=== PATIENT | male | born 1970 | race Caucasian/White ===

== ENCOUNTER 2023-02-05 15:13 | Inpatient (IN) | payer MEDICARE, OTHER ==
--- NOTE | 2023-02-05 15:20 | ED ---
General Adult HPI - General Stated complaint: petition Time Seen by Provider: 02/05/23 15:19 Source: RN notes reviewed - History of Present Illness Initial comments: 52-year-old male no significant past medical history presents the emergency department with chief complaint of suicidal ideation. Patient denies active plan at this time, however reports that he has had a plan in the past. He denies any homicidal ideation at this time. He denies any illicit drug alcohol use. He denies any visual, auditory hallucinations. - Related Data Home Medications Medication Instructions Recorded Confirmed Atorvastatin Calcium [Lipitor] 40 mg PO DAILY 02/05/23 02/05/23 Famotidine [Pepcid] 40 mg PO DAILY 02/05/23 02/05/23 Fenofibrate [Lofibra] 160 mg PO DAILY 02/05/23 02/05/23 Levothyroxine Sodium [Synthroid] 75 mcg PO DAILY 02/05/23 02/05/23 Rivaroxaban [Xarelto] 20 mg PO DAILY 02/05/23 02/05/23 Tamsulosin [Flomax] 0.8 mg PO DAILY 02/05/23 02/05/23 Venlafaxine HCl [Effexor] 75 mg PO BID 02/05/23 02/05/23 traZODone HCL [Desyrel] 200 mg PO HS 02/05/23 02/05/23 Allergies Allergy/AdvReac Type Severity Reaction Status Date / Time No Known Allergies Allergy Verified 02/05/23 16:58 Review of Systems ROS Statement: Those systems with pertinent positive or pertinent negative responses have been documented in the HPI. ROS Other: All systems not noted in ROS Statement are negative. General Exam - General Exam Comments Initial Comments: Visual Physical Exam Vital signs reviewed General: Well-appearing, nontoxic, no acute distress. Head: Normocephalic, atraumatic Eyes: PERRLA, EOMI ENT: Airway patent Chest: Nonlabored breathing Skin: No visual rash, normal skin tone Neuro: Alert and oriented 3 Musculoskeletal: No gross abnormalities General: Alert, in no acute distress, he appears unkept Head: atraumatic normocephalic. Eyes PERRL, EOMI intact, mucous membranes moist Respiratory: Lungs clear to auscultation bilaterally Cardiovascular: Rate regular rate and rhythm Abdominal: Soft without guarding or rebound Extremities: Normal inspection with full range of motion and normal capillary refill Neuroogic: alert and oriented 3, CN II-XII intact, able to ambulate with steady gait Skin: warm dry and intact with normal color Course Vital Signs 02/05/23 15:24 Temperature 98.3 F Pulse Rate 107 H Respiratory 18 Rate Blood Pressure 148/88 O2 Sat by Pulse 98 Oximetry - Reevaluation(s) Reevaluation #1: 02/05/23 19:31 Case discussed with nurse from EPS who believes the patient meets inpatient criteria Medical Decision Making - Medical Decision Making Was pt. sent in by a medical professional or institution (, ROBBY, SONG LYRICIST, urgent care, hospital, or prison...) When possible be specific @ -[No] Did you speak to anyone other than the patient for history (EMS, parent, family, police, friend...)? What history was obtained from this source @ -[No] Did you review nursing and triage notes (agree or disagree)? Why? @ -[I reviewed and agree with nursing and triage notes] Were old charts reviewed (outside hosp., previous admission, EMS record, old EKG, old radiological studies, urgent care reports/EKG's, prison records)? Report findings @ -[No old charts were reviewed] Differential Diagnosis (chest pain, altered mental status, abdominal pain women, abdominal pain men, vaginal bleeding, weakness, fever, dyspnea, syncope, headache, dizziness, GI bleed, back pain, seizure, CVA, palpatations, mental health, musculoskeletal)? @ -[not applicable] EKG interpreted by me (3pts min.). @ -[As above] X-rays interpreted by me (1pt min.). @ -[None done] CT interpreted by me (1pt min.). @ -[None done] U/S interpreted by me (1pt. min.). @ -[None done] What testing was considered but not performed or refused? (CT, X-rays, U/S, labs)? Why? @ -[None] What meds were considered but not given or refused? Why? @ -[None] Did you discuss the management of the patient with other professionals (professionals i.e. , ROBBY, SONG LYRICIST, lab, RT, psych nurse, social worker psychiatric, cmm inspector, teacher, strike operations officer, watch caser)? Give summary @ -[No] Was smoking cessation discussed for >3mins.? @ -[No] Was critical care preformed (if so, how long)? @ -[No] Were there social determinants of health that impacted care today? How? (Homelessness, low income, unemployed, alcoholism, drug addiction, transportation, low edu. Level, literacy, decrease access to med. care, senior living, rehab)? @ -[No] Was there de-escalation of care discussed even if they declined (Discuss DNR or withdrawal of care, Hospice)? DNR status @ -[No] What co-morbidities impacted this encounter? (DM, HTN, Smoking, COPD, CAD, Cancer, CVA, ARF, Chemo, Hep., AIDS, mental health diagnosis, sleep apnea, morbid obesity)? @ -[None] Was patient admitted / discharged? Hospital course, mention meds given and route, prescriptions, significant lab abnormalities, going to OR and other pertinent info. @ -Admission. This is a 52-year-old male presents to the emergency department with suicidal ideation. He had a thorough history and physical performed on the ED. Physical exam is unremarkable. Heart rate regular rate and rhythm lungs clear to auscultation bilaterally abdomen is soft and non- tender. Patient was evaluated by EPS nurse who believes the patient meets inpatient criteria. Case discussed with Dr. Escalante who agrees with plan of care Undiagnosed new problem with uncertain prognosis? @ -[No] Drug Therapy requiring intensive monitoring for toxicity (Heparin, Nitro, Insulin, Cardizem)? @ -[No] Were any procedures done? @ -[No] Diagnosis/symptom? @ -suicidal ideation Acute, or Chronic, or Acute on Chronic? @ Acute Uncomplicated (without systemic symptoms) or Complicated (systemic symptoms)? @ -complicated Side effects of treatment? @ -[No] Exacerbation, Progression, or Severe Exacerbation? @ -[No] Poses a threat to life or bodily function? How? (Chest pain, USA, OR, pneumonia, PE, COPD, DKA, ARF, appy, cholecystitis, CVA, Diverticulitis, Homicidal, Suicidal, threat to staff... and all critical care pts) @ -Likelihood as patient has suicidal Disposition Clinical Impression: Depression, Suicidal ideation Disposition: ADMITTED IP TO THIS HOSP Condition: Fair Referrals: Laura Whitehead MD [Primary Care Provider] - 1-2 days Time of Disposition: 19:35
[2023-02-05] MEDS ORDERED: LORazepam 2 MG/ML INJ IM PRN (21:01)
[2023-02-05] MEDS ORDERED: ACETAMINOPHEN TAB 325 MG TAB PO PRN (21:01)
[2023-02-05] MEDS ORDERED: HALOPERIDOL LACTATE 5 MG/ML 1 ML VIAL IM PRN (21:01)
[2023-02-05] MEDS ORDERED: MAGNESIUM HYDROXIDE 2,400 MG/10 ML CUP PO PRN (21:01)
[2023-02-05] MEDS ORDERED: MAG HYDROX/AL HYDROX/SIMETH 30 ML CUP PO PRN (21:01)
[2023-02-05] MEDS: traZODone HCL 100 MG TAB PO SCH (21:43)
[2023-02-05] MEDS: VENLAFAXINE HCL 75 MG TAB PO SCH (21:43)
[2023-02-05 22:29] LABS: Amphetamine Screen,Urine Not Detected (NotDetected); Barbiturate Screen,Urine Not Detected (NotDetected); Benzodiazepines Screen,Urine Not Detected (NotDetected); Cocaine Screen,Urine Not Detected (NotDetected); Methadone Screen, Urine Not Detected (NotDetected); Opiate Screen,Urine Not Detected (NotDetected); Oxycodone Screen, Urine Not Detected (NotDetected); Phencyclidine Screen,Urine Not Detected (NotDetected); Tricyclic Antidepressant,Urine Not Detected (NotDetected); Urn Cannabinoid Scrn Detected (NotDetected)
[2023-02-05] MEDS: FAMOTIDINE 20 MG TAB PO SCH (22:53)
[2023-02-05] MEDS: RIVAROXABAN 20 MG TAB PO SCH (23:00)
[2023-02-05] MEDS: LORazepam 1 MG TAB PO PRN (23:01)
[2023-02-06] MEDS: LEVOTHYROXINE 75 MCG TAB PO SCH (06:23)
[2023-02-06 08:50] LABS: Basophils # (A) 0.1 k/uL (0-0.2); Basophils % (A) 1 %; Eosinophils # (A) 0.3 k/uL (0-0.7); Eosinophils % (A) 5 %; HCT 52.6 % (39.0-53.0); Lymphocytes # (A) 1.5 k/uL (1.0-4.8); Lymphocytes % (A) 25 %; MCH 27.8 pg (25.0-35.0); MCHC 32.3 g/dL (31.0-37.0); MCV 86.2 fL (80.0-100.0); Mean Platelet Volume 7.6; Monocytes # (A) 0.5 k/uL (0-1.0); Monocytes % (A) 9 %; Neutrophils # (A) 3.4 k/uL (1.3-7.7); Neutrophils % (A) 58 %; Platelet Count 243 k/uL (150-450); RDW 14.3 % (11.5-15.5); WBC 5.9 k/uL (3.8-10.6)
[2023-02-06] MEDS ORDERED: FAMOTIDINE 20 MG TAB PO SCH (09:00)
[2023-02-06] MEDS ORDERED: NICOTINE 14MG/24HR PATCH TRANSDERM SCH (09:00)
[2023-02-06] MEDS ORDERED: RIVAROXABAN 20 MG TAB PO SCH (09:00)
[2023-02-06 09:04] LABS: Calcium 10.2 mg/dL (8.4-10.2); Potassium 4.3 mmol/L (3.5-5.1); Total Protein 8.3 g/dL (6.3-8.2)
[2023-02-06] MEDS: FENOFIBRATE 160 MG TAB PO SCH (09:18)
[2023-02-06] MEDS: ATORVASTATIN 40 MG TAB PO SCH (09:18)
[2023-02-06] MEDS: VENLAFAXINE HCL 75 MG TAB PO SCH (09:19)
[2023-02-06] MEDS: TAMSULOSIN 0.4 MG CAP.ER.24H PO SCH (09:19)
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
[2023-02-06] MEDS: LORazepam 1 MG TAB PO PRN (16:41)
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
[2023-02-06] MEDS: traZODone HCL 100 MG TAB PO SCH (21:06)
[2023-02-06] MEDS: RIVAROXABAN 20 MG TAB PO SCH (21:06)
[2023-02-06] MEDS: FAMOTIDINE 20 MG TAB PO SCH (21:07)
[2023-02-07] MEDS: LEVOTHYROXINE 75 MCG TAB PO SCH (06:47)
[2023-02-07] MEDS ORDERED: VENLAFAXINE HCL ER 75 MG CAP PO SCH (09:00)
[2023-02-07] MEDS: TAMSULOSIN 0.4 MG CAP.ER.24H PO SCH (09:25)
[2023-02-07] MEDS: ATORVASTATIN 40 MG TAB PO SCH (09:25)
[2023-02-07] MEDS: FENOFIBRATE 160 MG TAB PO SCH (09:25)
[2023-02-07] MEDS: LORazepam 1 MG TAB PO PRN ×2 (11:55→21:07)
--- NOTE | 2023-02-07 19:55 | P.PN ---
Progress Note - Text Progress Note Date: 02/07/23 Interval history: Patient was seen sitting in the hallway crying because another patient that reminds him of his daughter has been crying and he feels really bad and depressed. He was directable and agreeable to speak with senior mortgage underwriter. He reports depressed mood and suicidal ideation with plan to drink mixture of ammonia and bleach. He states "I wish I was ". He homicidal ideation, intent or plan. He denies auditory or visual hallucinations. Patient denies any side effects from the medications and has been compliant with meds. He reports poor appetite and claims to not have eaten since Thursday dinner, but he has been drinking water. Mental status exam: General Appearance: Patient appears to be stated age, disheveled, unkept plata. Behavior: No agitated behavior. Patient is tearful, found in the hallway, sitting in the corner sobbing. Speech: Patient's speech is fluent and non-pressured. Mood/Affect: Mood is depressed, affect is congruent and constricted and sobbing. Suicidality/Homicidality: He reports suicidal ideation with plan to drink mixture of ammonia and bleach. He denies homicidal ideation, intent or plan. Perceptions: Patient denies any auditory or visual hallucinations. Though content/process: There is no evidence of any delusional thought content and thought process is ruminative. Memory and concentration: AOX3, grossly intact for the purposes of this session Judgment and insight: poor Assessment/Plan: Continue with current diagnosis. Patient continues to meet criteria for inpatient psychiatric admission for symptom stabilization and safety. Increase Effexor XR to 112.5 mg daily in the AM starting tomorrow morning. Start Remeron 15 mg QHS for depression/sleep/appetite. Decrease Trazodone from 200 mg QHS to 150 mg QHS for sleep, with plan to continue taper down if tolerated. Monitor for medication compliance and for any psychotropic medication side effects. Will continue to monitor ongoing response to treatment. Encouraged participation in milieu.
[2023-02-07] MEDS: FAMOTIDINE 20 MG TAB PO SCH (20:50)
[2023-02-07] MEDS: RIVAROXABAN 20 MG TAB PO SCH (20:51)
[2023-02-07] MEDS: MIRTAZAPINE 15 MG TAB PO SCH (20:52)
[2023-02-07] MEDS ORDERED: traZODone HCL 50 MG TAB PO SCH (21:00)
[2023-02-08] MEDS: LEVOTHYROXINE 75 MCG TAB PO SCH (07:00)
[2023-02-08] MEDS ORDERED: VENLAFAXINE HCL ER 37.5 MG CAP PO SCH (09:00)
[2023-02-08] MEDS: TAMSULOSIN 0.4 MG CAP.ER.24H PO SCH (09:17)
[2023-02-08] MEDS: ATORVASTATIN 40 MG TAB PO SCH (09:17)
[2023-02-08] MEDS: FENOFIBRATE 160 MG TAB PO SCH (09:18)
--- NOTE | 2023-02-08 19:49 | P.PN ---
Progress Note - Text Progress Note Date: 02/08/23 Interval history: Patient was seen walking in the hallway and appears to be better today, but states he feels the same as yesterday. He reports his mood is "pathetic", and reports he is missing family dinner today with his daughter. He continues to endorse suicidal ideation and states "I wish I was ". He homicidal ideation, intent or plan. He denies auditory or visual hallucinations. Patient has been compliant with meds and reports he slept in until 2pm. He reports poor appetite but did eat some broth today. Mental status exam: General Appearance: Patient appears to be stated age, disheveled, unkept plata. Behavior: No agitated behavior. Speech: Patient's speech is fluent and non-pressured. Mood/Affect: Mood is depressed, affect is congruent and constricted. Suicidality/Homicidality: He reports suicidal ideation. He denies homicidal ideation, intent or plan. Perceptions: Patient denies any auditory or visual hallucinations. Though content/process: There is no evidence of any delusional thought content and thought process is ruminative. Memory and concentration: AOX3, grossly intact for the purposes of this session Judgment and insight: poor Assessment/Plan: Continue with current diagnosis. Patient continues to meet criteria for inpatient psychiatric admission for symptom stabilization and safety. Increase Effexor XR to 150 mg daily in the AM starting tomorrow morning for anxiety/depression. Continue Remeron 15 mg QHS for depression/sleep/appetite. Decrease Trazodone from 150 mg QHS to 100 mg QHS for sleep, with plan to continue taper down if tolerated. Monitor for medication compliance and for any psychotropic medication side e ffects. Will continue to monitor ongoing response to treatment. Encouraged participation in milieu.
[2023-02-08] MEDS: FAMOTIDINE 20 MG TAB PO SCH (21:12)
[2023-02-08] MEDS: RIVAROXABAN 20 MG TAB PO SCH (21:12)
[2023-02-08] MEDS: traZODone HCL 100 MG TAB PO SCH (21:12)
[2023-02-08] MEDS: MIRTAZAPINE 15 MG TAB PO SCH (21:12)
[2023-02-09] MEDS: LEVOTHYROXINE 75 MCG TAB PO SCH (06:55)
[2023-02-09] MEDS: TAMSULOSIN 0.4 MG CAP.ER.24H PO SCH (08:54)
[2023-02-09] MEDS: ATORVASTATIN 40 MG TAB PO SCH (08:54)
[2023-02-09] MEDS: FENOFIBRATE 160 MG TAB PO SCH (08:54)
[2023-02-09] MEDS: VENLAFAXINE HCL ER 150 MG CAP PO SCH (08:55)
--- NOTE | 2023-02-09 12:52 | P.PN ---
Subjective Progress Note Date: 02/09/23 Principal diagnosis: Progress note Diagnosis: Major Depressive Disorder and dysthymic disorder. His mood symptoms have not improved : he commented he was still " suicidal" and do not want to continue. He was precccupied with his deflated self-image and had difficulty in release from longterm and to resume Normal life. He was compliant with his Rx: and was continued o Effexor trazoeone. He may benefit from ABilify as augmentation strategy if he fails to respond by Thursday. MSE: he was superficially pleasant, with downcast eye speaking in a low tone of voice. speech coherent ; blunted affect congruuent with his thought content. No overt Psychotic aymptoms of hallucinations. or delusons. His preoccupation with suicidal ideation and his inflated worthlessness reached a obsession magnitude. He vieweD his future as bleak with suicidal ideation , no suicidal plan. he felt safe on the unit. Cog; he was oriented with marginal or absent insight judgment . Plan He coontineud to require inpatient stay to stablize his mental stATUS CONSULT WITH SOCIAL WORK FOR alternative home milieu to defuse family conflicts. Engage him to unit groups Objective - Vital Signs Vital signs: Vital Signs Temp 97.7 F 02/09/23 06:32 Pulse 81 02/09/23 06:32 Resp 16 02/09/23 06:32 BP 127/71 02/09/23 06:32 Pulse Ox 98 02/09/23 06:32 FiO2 Intake & Output 02/08/23 02/09/23 02/09/23 18:59 06:59 18:59 Weight 88.5 kg - Labs CBC & Chem 7: 02/06/23 08:29 02/06/23 08:29
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
[2023-02-09] MEDS: traZODone HCL 100 MG TAB PO SCH (21:11)
[2023-02-09] MEDS: FAMOTIDINE 20 MG TAB PO SCH (21:11)
[2023-02-09] MEDS: RIVAROXABAN 20 MG TAB PO SCH (21:11)
[2023-02-09] MEDS: MIRTAZAPINE 15 MG TAB PO SCH (21:11)
[2023-02-10] MEDS: LEVOTHYROXINE 75 MCG TAB PO SCH (06:24)
[2023-02-10] MEDS: ATORVASTATIN 40 MG TAB PO SCH (09:05)
[2023-02-10] MEDS: TAMSULOSIN 0.4 MG CAP.ER.24H PO SCH (09:05)
[2023-02-10] MEDS: VENLAFAXINE HCL ER 150 MG CAP PO SCH (09:06)
[2023-02-10] MEDS: FENOFIBRATE 160 MG TAB PO SCH (09:06)
[2023-02-10] MEDS: haloperidoL 5 MG TAB PO PRN (15:17)
[2023-02-10] MEDS: LORazepam 1 MG TAB PO PRN (15:17)
--- NOTE | 2023-02-10 17:37 | P.PN ---
Subjective Progress Note Date: 02/10/23 Principal diagnosis: Progress note I attempted to engage him to alternative plab bu failed he was unwilling to consider yet another Rx trial to cope better with his negaitve ideations regarding his self iamge. He was discussed at the team meeting. MSE : still blunted dishrevelled in appearance , he remained seclusive and did not want to communicate or attend in person. Highly flat affect. Congruent with his thought content. He deneid any halluciantons . Nihilistic delusion ; nothing works may have consumed his cognitive set. No Suicidla or homicidal ideation. Cog; He was oriended with absent insight judgement into his conditon Diagnosis : MDD severe, peronality disorder has to be considered. treatment resistant depression would be likely management he may benefit form Augmentation with Brexulti or ability in addition to SSRI or SNRI discharge planning to be further discussed. Objective - Vital Signs Vital signs: Vital Signs Temp 98.3 F 02/10/23 06:00 Pulse 85 02/10/23 06:00 Resp 17 02/10/23 06:00 BP 98/60 02/10/23 06:00 Pulse Ox 93 L 02/10/23 06:00 FiO2 Intake & Output 02/09/23 02/10/23 02/10/23 18:59 06:59 18:59 Weight 88.5 kg - Labs CBC & Chem 7: 02/06/23 08:29 02/06/23 08:29
[2023-02-10] MEDS: MIRTAZAPINE 15 MG TAB PO SCH (20:46)
[2023-02-10] MEDS: traZODone HCL 100 MG TAB PO SCH (20:46)
[2023-02-10] MEDS: RIVAROXABAN 20 MG TAB PO SCH (20:46)
[2023-02-10] MEDS: FAMOTIDINE 20 MG TAB PO SCH (20:46)
[2023-02-11] MEDS: LEVOTHYROXINE 75 MCG TAB PO SCH (06:57)
[2023-02-11] MEDS ORDERED: VENLAFAXINE HCL ER 75 MG CAP PO STA (09:49)
--- NOTE | 2023-02-11 09:57 | P.PN ---
Progress Note - Text Progress Note Date: 02/11/23 Interval history: Patient was seen today sleeping in bed. he was agreeable to be seen today by jose g carpio in the office. he continues to have a discheveled appearance. he states that he is still isolating and still feeling depressed. he was less tearful today. he claims that he is still having amotivation, feelings of helplessness and hoplessness. he states that he is not interested in going to many groups. He claims that his appetite is still poor. States that he is sleeping for long periods of time and wants to sleep during the day. He claims that he still having suicidal thoughts however no intent or plan. Denies any homicidal ideations. Denies any auditory or visual hallucinations. He has been taking the medications not reporting any side effects. General Appearance: Patient appears to be disheveled in appearance, longer hair, wearing glasses, stated age is alert, directable, and attempts to cooperate. Patient appears to have poor hygiene and grooming. Poor eye contact. Behavior: Patient is seated without any agitated behavior. Constricted. Speech: Patient's speech is fluent and nonpressured. Monotone and soft tone Mood/Affect: Patient reports their mood is depressed and anxious, affect is congruent and constricted. Suicidality/Homicidality: Patient denies having any homicidal ideation intent or plan. Admits to suicidal thoughts, no intent or plan. Perceptions: Patient denies any visual hallucinations and denies any auditory hallucinations Though content/process: There is no evidence of any delusional thought content and thought process is linear and goal-directed. [place]. Memory and concentration: AOX3, grossly intact for the purposes of this session Judgment and insight: poor IMPRESSIONS: Major depressive disorder, recurrent, severe without psychotic features Social anxiety disorder Cannabis use disorder legal problems PLAN: -Patient is admitted under voluntary status to [facility] for stabilization of psychiatric symptoms and safety. Patient has signed adult voluntary form and medication consent and is placed in patient's chart. -Medications : increase effexor xr 225 mg daily for mood/anxiety. decrease trazodone to 50 mg qhs for sleep/mood. continuie with remeron 15 mg qhs for sleep/appetite. -Ativan and Haldol PRN for agitation/aggression -NRT - not needed as patient does not smoke -SW on board for discharge planning. Encourage patient to participate in groups to work on coping skills. patients has a PPO against him and he is not allowed to contact him. patient is not allowed to go back home and currently looking into alternative dispo plans.
[2023-02-11] MEDS: TAMSULOSIN 0.4 MG CAP.ER.24H PO SCH (10:28)
[2023-02-11] MEDS: ATORVASTATIN 40 MG TAB PO SCH (10:28)
[2023-02-11] MEDS: FENOFIBRATE 160 MG TAB PO SCH (10:28)
[2023-02-11] MEDS: VENLAFAXINE HCL ER 75 MG CAP PO SCH (10:37)
[2023-02-11] MEDS: VENLAFAXINE HCL ER 150 MG CAP PO SCH (10:44)
[2023-02-11] MEDS: MIRTAZAPINE 15 MG TAB PO SCH (20:54)
[2023-02-11] MEDS: FAMOTIDINE 20 MG TAB PO SCH (20:54)
[2023-02-11] MEDS ORDERED: traZODone HCL 50 MG TAB PO SCH (21:00)
[2023-02-11] MEDS: RIVAROXABAN 20 MG TAB PO SCH (21:10)
[2023-02-12] MEDS: haloperidoL 5 MG TAB PO PRN (00:10)
[2023-02-12] MEDS: LORazepam 1 MG TAB PO PRN (00:10)
[2023-02-12] MEDS: LEVOTHYROXINE 75 MCG TAB PO SCH (08:56)
[2023-02-12] MEDS: VENLAFAXINE HCL ER 75 MG CAP PO SCH (08:56)
[2023-02-12] MEDS: TAMSULOSIN 0.4 MG CAP.ER.24H PO SCH (08:57)
[2023-02-12] MEDS: ATORVASTATIN 40 MG TAB PO SCH (08:57)
[2023-02-12] MEDS: FENOFIBRATE 160 MG TAB PO SCH (08:57)
--- NOTE | 2023-02-12 11:21 | P.PN ---
Progress Note - Text Progress Note Date: 02/12/23 Interval history: Patient was seen today sleeping in bed and was agreeable to be seen today by jose g carpio in the office. he continues to have a discheveled appearance and continues to have poor eye contact. He continues to state that he feels "still depressed" and continues to focus on having a motivation, feelings of hopelessness. He states that he is still having thoughts of "not wanting to live anymore". He claims that he is having a lot of racing thoughts last night and thought that he hurt his talking to him and needed Ativan and Haldol. he states that he is not interested in going to many groups however will try to go to some today. He claims that his appetite is still poor and has not been consuming much. He claims that he still having suicidal thoughts however no intent or plan. Denies any homicidal ideations. Denies any auditory or visual hallucinations. He has been taking the medications not reporting any side effects. Mental status exam: General Appearance: Patient appears to be disheveled in appearance, longer hair, wearing glasses, stated age is alert, directable, and attempts to cooperate. Patient appears to have poor hygiene and grooming. Poor eye contact. Behavior: Patient is seated without any agitated behavior. Constricted. Speech: Patient's speech is fluent and nonpressured. Monotone and soft tone Mood/Affect: Patient reports their mood is depressed, affect is congruent and constricted. Suicidality/Homicidality: Patient denies having any homicidal ideation intent or plan. Admits to suicidal thoughts, no intent or plan. Perceptions: Patient denies any visual hallucinations and denies any auditory hallucinations Though content/process: There is no evidence of any delusional thought content and thought process is linear and goal-directed. [place]. Memory and concentration: AOX3, grossly intact for the purposes of this session Judgment and insight: poor, improving mildly IMPRESSIONS: Major depressive disorder, recurrent, severe without psychotic features Social anxiety disorder Cannabis use disorder legal problems PLAN: -Patient is admitted under voluntary status to [facility] for stabilization of psychiatric symptoms and safety. Patient has signed adult voluntary form and medication consent and is placed in patient's chart. -Medications : Continue with Effexor xr 225 mg daily for mood/anxiety. d/c trazodone and remeron and replaced with seroquel 100 mg qhs for insomnia/mood stabilization -Ativan and Haldol PRN for agitation/aggression -NRT - not needed as patient does not smoke -SW on board for discharge planning. Encourage patient to participate in groups to work on coping skills. patients has a PPO against him and he is not allowed to contact him. patient is not allowed to go back home and currently looking into alternative dispo plans. may likely need to be referred to half-way.
[2023-02-12] MEDS: FAMOTIDINE 20 MG TAB PO SCH (20:46)
[2023-02-12] MEDS: QUEtiapine 100 MG TAB PO SCH (20:46)
[2023-02-12] MEDS: RIVAROXABAN 20 MG TAB PO SCH (20:46)
[2023-02-13] MEDS: haloperidoL 5 MG TAB PO PRN (00:12)
[2023-02-13] MEDS: LORazepam 1 MG TAB PO PRN (00:12)
[2023-02-13] MEDS: LEVOTHYROXINE 75 MCG TAB PO SCH (06:31)
[2023-02-13] MEDS: ATORVASTATIN 40 MG TAB PO SCH (09:46)
[2023-02-13] MEDS: FENOFIBRATE 160 MG TAB PO SCH (09:46)
[2023-02-13] MEDS: VENLAFAXINE HCL ER 75 MG CAP PO SCH (09:46)
[2023-02-13] MEDS: TAMSULOSIN 0.4 MG CAP.ER.24H PO SCH (09:46)
--- NOTE | 2023-02-13 11:36 | P.PN ---
Progress Note - Text Progress Note Date: 02/13/23 Interval history: Patient was seen today sleeping in bed and was agreeable to be seen today by jose g carpio in the office. Patient continues to have a disheveled appearance, he continues to have a constricted affect. He continues to also appeared to be depressed and states that he is still feeling "very low" and also endorsing anxiety. He states that he feels the medications have not been helping him. He continues to have thoughts of "not wanting to be here anymore" and is continuing to endorse suicidal thoughts, no intent or plan. He states that he had a lot of racing thoughts last night and required Haldol and Ativan when necessary. He claims that he was able to sleep fairly afterwards. States that his energy level during the day as been fairly low. Continues to endorse hopelessness. He claims that his appetite is still poor and has not been consuming much. He claims that he still having suicidal thoughts however no intent or plan. Denies any homicidal ideations. Denies any auditory or visual hallucinations. He has been taking the medications not reporting any side effects. Mental status exam: General Appearance: Patient appears to be disheveled in appearance, longer hair, wearing glasses, stated age is alert, directable, and attempts to cooperate. Patient appears to have poor hygiene and grooming. Poor eye contact. Behavior: Patient is seated without any agitated behavior. Constricted. Speech: Patient's speech is fluent and nonpressured. Monotone and soft tone Mood/Affect: Patient reports their mood is depressed and anxious, affect is congruent and constricted. Suicidality/Homicidality: Patient denies having any homicidal ideation intent or plan. Admits to suicidal thoughts, no intent or plan. Perceptions: Patient denies any visual hallucinations and denies any auditory hallucinations Though content/process: There is no evidence of any delusional thought content and thought process is linear and goal-directed. [place]. Memory and concentration: AOX3, grossly intact for the purposes of this session Judgment and insight: poor, improving mildly IMPRESSIONS: Major depressive disorder, recurrent, severe without psychotic features Social anxiety disorder Cannabis use disorder legal problems PLAN: -Patient is admitted under voluntary status to [facility] for stabilization of psychiatric symptoms and safety. Patient has signed adult voluntary form and medication consent and is placed in patient's chart. -Medications : decrease/tapering Effexor xr down to 150 mg daily for two days then down to 75 mg for mood/anxiety, will cross titrate with nortriptyline starting next week. continue seroquel 100 mg qhs for insomnia/mood stabilization. added lithium 150 mg bid for mood adjunct/suicidal thoughts. -Ativan and Haldol PRN for agitation/aggression -NRT - not needed as patient does not smoke -SW on board for discharge planning. Encourage patient to participate in groups to work on coping skills. patients has a PPO against him and he is not allowed to contact him. patient is not allowed to go back home and currently looking into alternative dispo plans. may likely need to be referred to penitentiary.
[2023-02-13] MEDS: QUEtiapine 100 MG TAB PO SCH (21:57)
[2023-02-13] MEDS: LITHIUM CARBONATE 150 MG CAP PO SCH (21:57)
[2023-02-13] MEDS: FAMOTIDINE 20 MG TAB PO SCH (21:57)
[2023-02-13] MEDS: RIVAROXABAN 20 MG TAB PO SCH (21:58)
[2023-02-14] MEDS: LEVOTHYROXINE 75 MCG TAB PO SCH (06:09)
[2023-02-14] MEDS: TAMSULOSIN 0.4 MG CAP.ER.24H PO SCH (08:35)
[2023-02-14] MEDS: LITHIUM CARBONATE 150 MG CAP PO SCH ×2 (08:35→21:26)
[2023-02-14] MEDS: VENLAFAXINE HCL ER 150 MG CAP PO SCH (08:35)
[2023-02-14] MEDS: ATORVASTATIN 40 MG TAB PO SCH (08:35)
[2023-02-14] MEDS: FENOFIBRATE 160 MG TAB PO SCH (08:35)
--- NOTE | 2023-02-14 11:32 | P.PN ---
Progress Note - Text Progress Note Date: 02/14/23 Interval history: Patient was seen today sleeping in bed and was agreeable to be seen today by jose g carpio. Patient continues to have a disheveled appearance, he continues to have a constricted affect. He displays a depressed affect and states that his mood is "so-so". Patient reports racing thoughts that are negative in nature. He states that he cannot recall positive aspects of his life. He states that he is worried about his housing situation. He received Haldol 5 mg once and Ativan 1 mg once yesterday due to feelings of agitation. He continues to have thoughts of "not wanting to be here anymore" and is continuing to endorse suicidal thoughts, but without intent or plan. He reports fair sleep but poor appetite and low energy. He was agreeable with Effexor taper as it is currently scheduled. He claims that he still having suicidal thoughts however no intent or plan. Denies any homicidal ideation. Denies any auditory or visual hallucinations. He has been taking the medications not reporting any side effects. Mental status exam: General Appearance: Patient appears to be disheveled in appearance, longer hair, wearing glasses, stated age is alert, directable, and attempts to cooperate. Patient appears to have poor hygiene and grooming. Poor eye contact. Behavior: Patient is seated without any agitated behavior. Constricted. Speech: Patient's speech is fluent and nonpressured. Monotone and soft tone Mood/Affect: Patient reports their mood is depressed and anxious, affect is congruent and constricted. Suicidality/Homicidality: Patient denies having any homicidal ideation intent or plan. Admits to suicidal thoughts, no intent or plan. Perceptions: Patient denies any visual hallucinations and denies any auditory hallucinations Though content/process: There is no evidence of any delusional thought content and thought process is linear and goal-directed. Memory and concentration: AOX3, grossly intact for the purposes of this session Judgment and insight: poor, improving mildly IMPRESSIONS: Major depressive disorder, recurrent, severe without psychotic features Social anxiety disorder Cannabis use disorder legal problems PLAN: -Patient is admitted under voluntary status to [facility] for stabilization of psychiatric symptoms and safety. Patient has signed adult voluntary form and medication consent and is placed in patient's chart. -Medications : decrease/tapering Effexor xr down to 150 mg daily for two days then down to 75 mg for mood/anxiety, will cross titrate with nortriptyline starting next week. continue seroquel 100 mg qhs for insomnia/mood stabilization. lithium 150 mg bid for mood adjunct/suicidal thoughts. -Ativan and Haldol PRN for agitation/aggression -NRT - not needed as patient does not smoke -SW on board for discharge planning. Encourage patient to participate in groups to work on coping skills. patients has a PPO against him and he is not allowed to contact him. patient is not allowed to go back home and currently looking into alternative dispo plans. may likely need to be referred to halfway.
[2023-02-14] MEDS: FAMOTIDINE 20 MG TAB PO SCH (21:27)
[2023-02-14] MEDS: RIVAROXABAN 20 MG TAB PO SCH (21:27)
[2023-02-14] MEDS: QUEtiapine 100 MG TAB PO SCH (21:27)
[2023-02-15] MEDS: LORazepam 1 MG TAB PO PRN (00:09)
[2023-02-15] MEDS: LEVOTHYROXINE 75 MCG TAB PO SCH (06:05)
[2023-02-15] MEDS: TAMSULOSIN 0.4 MG CAP.ER.24H PO SCH (08:38)
[2023-02-15] MEDS: LITHIUM CARBONATE 150 MG CAP PO SCH ×2 (08:38→21:04)
[2023-02-15] MEDS: VENLAFAXINE HCL ER 150 MG CAP PO SCH (08:38)
[2023-02-15] MEDS: FENOFIBRATE 160 MG TAB PO SCH (08:39)
[2023-02-15] MEDS: ATORVASTATIN 40 MG TAB PO SCH (08:39)
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
--- NOTE | 2023-02-15 13:52 | P.PN ---
Progress Note - Text Progress Note Date: 02/15/23 Interval history: Patient was seen today sleeping in bed and was agreeable to be seen today by jose g carpio. Patient continues to have a disheveled appearance, he continues to have a depressed affect. He states that his mood is "down". He states that he is worried about his housing situation and also about the court date is scheduled for tomorrow. He requests to speak with social work and said that though he asked, he has not been able to speak with social work yet. He continues to have thoughts of "not wanting to be here anymore" and is continuing to endorse suicidal thoughts, but without intent or plan. He says that he constantly has thoughts of worthlessness and cannot think of any positive things in his life. However, upon further discussion, patient admitted that he had a good relationship with his daughter. He reports fair sleep, adequate appetite and low energy. He was agreeable with Effexor taper as it is currently scheduled. He claims that he still having suicidal thoughts however no intent or plan. Denies any homicidal ideation. Denies any auditory or visual hallucinations. He has been taking the medications not reporting any side effects. Patient denies withdrawal symptoms from Effexor taper currently and was advised about those. Mental status exam: General Appearance: Patient appears to be disheveled in appearance, longer hair, wearing glasses, stated age is alert, directable, and attempts to cooperate. Patient appears to have poor hygiene and grooming. Fair eye contact. Behavior: Patient is seated without any agitated behavior. Constricted. Speech: Patient's speech is fluent and nonpressured. Monotone and soft tone Mood/Affect: Patient reports their mood is depressed and anxious, affect is congruent and constricted. Suicidality/Homicidality: Patient denies having any homicidal ideation intent or plan. Admits to suicidal thoughts, no intent or plan. Perceptions: Patient denies any visual hallucinations and denies any auditory hallucinations Though content/process: There is no evidence of any delusional thought content and thought process is linear and goal-directed. Memory and concentration: AOX3, grossly intact for the purposes of this session Judgment and insight: poor, improving mildly IMPRESSIONS: Major depressive disorder, recurrent, severe without psychotic features Social anxiety disorder Cannabis use disorder legal problems PLAN: -Patient is admitted under voluntary status to MHU for stabilization of psychiatric symptoms and safety. Patient has signed adult voluntary form and medication consent and is placed in patient's chart. -Medications : decrease/tapering Effexor xr down 75 mg for mood/anxiety tomorrow and 37.5 mg after, will cross titrate with nortriptyline starting next week. continue seroquel 100 mg qhs for insomnia/mood stabilization. lithium 150 mg bid for mood adjunct/suicidal thoughts. -Ativan and Haldol PRN for agitation/aggression -NRT - not needed as patient does not smoke -SW on board for discharge planning. Encourage patient to participate in groups to work on coping skills. patients has a PPO against him and he is not allowed to contact him. patient is not allowed to go back home and currently looking into alternative dispo plans. may likely need to be referred to alf. - SW to speak with patient regarding court case scheduled for 02/16/23
[2023-02-15] MEDS: FAMOTIDINE 20 MG TAB PO SCH (21:04)
[2023-02-15] MEDS: QUEtiapine 100 MG TAB PO SCH (21:05)
[2023-02-15] MEDS: RIVAROXABAN 20 MG TAB PO SCH (21:05)
[2023-02-16] MEDS: LORazepam 1 MG TAB PO PRN ×2 (00:44→23:37)
[2023-02-16] MEDS: LEVOTHYROXINE 75 MCG TAB PO SCH (06:24)
[2023-02-16] MEDS ORDERED: VENLAFAXINE HCL ER 75 MG CAP PO SCH (09:00)
[2023-02-16] MEDS: FENOFIBRATE 160 MG TAB PO SCH (10:10)
[2023-02-16] MEDS: TAMSULOSIN 0.4 MG CAP.ER.24H PO SCH (10:10)
[2023-02-16] MEDS: LITHIUM CARBONATE 150 MG CAP PO SCH (10:10)
[2023-02-16] MEDS: ATORVASTATIN 40 MG TAB PO SCH (10:12)
[2023-02-16] MEDS: buPROPion XL 150 MG TAB.ER.24H PO SCH (13:35)
[2023-02-16 13:38] VITALS: BMI 27.0
--- NOTE | 2023-02-16 14:33 | P.PN ---
Progress Note - Text Progress Note Date: 02/16/23 Interval history: Patient was seen today near the nurse's desk earlier and also in the hallways and was agreeable radio news writer in the office. Patient appears to have mild improvement in his appearance today, continues to be tearful at times when speaking about his home situation. He acknowledged pushing his was wrong however states that "she pushes me all the time". He claims that he was supposed to have a court hearing date today however it's will be getting postponed. He states that he ending his did not have a place to go which is getting him to feel anxious and depressed. Continues to feel hopeless and stated that he has suicidal thoughts however no intent or plan. He was seen earlier playing games with another patient on the unit. He claims that he was able to sleep fairly fairly at nighttime. States that his energy level during the day as been fairly low. Continues to endorse hopelessness and states that he feels the Effexor has not been helping much. He claims that his appetite is still poor and has not been consuming much. Denies any homicidal ideations. D enies any auditory or visual hallucinations. He has been taking the medications not reporting any side effects. Mental status exam: General Appearance: Patient appears to be disheveled in appearance, longer hair, wearing glasses, stated age is alert, directable, and attempts to cooperate. Patient appears to have improving hygiene and grooming. Poor eye contact. Behavior: Patient is seated without any agitated behavior. Constricted and tearful at times. Speech: Patient's speech is fluent and nonpressured. Monotone and soft tone, mildly improving Mood/Affect: Patient reports their mood is depressed and anxious and hopeless, affect is congruent and constricted. Suicidality/Homicidality: Patient denies having any homicidal ideation intent or plan. Admits to suicidal thoughts, no intent or plan. Perceptions: Patient denies any visual hallucinations and denies any auditory hallucinations Though content/process: There is no evidence of any delusional thought content and thought process is linear and goal-directed. [place]. Memory and concentration: AOX3, grossly intact for the purposes of this session Judgment and insight: poor, improving mildly IMPRESSIONS: Major depressive disorder, recurrent, severe without psychotic features Social anxiety disorder Cannabis use disorder legal problems PLAN: -Patient is admitted under voluntary status to MHU for stabilization of psych iatric symptoms and safety. Patient has signed adult voluntary form and medication consent and is placed in patient's chart. -Medications : decrease/tapering Effexor xr down to 37.5 mg for mood/anxiety and continue decreasing. will cross taper with wellbutrin xl starting today. continue seroquel 100 mg qhs for insomnia/mood stabilization. changed lithium to 450 mg bid for mood adjunct/suicidal thoughts. -Ativan and Haldol PRN for agitation/aggression -NRT - not needed as patient does not smoke -SW on board for discharge planning. Encourage patient to participate in groups to work on coping skills. patients has a PPO against him and he is not allowed to contact him. patient is not allowed to go back home and currently looking into alternative dispo plans however is not able to locate any family members. may likely need to be referred to [facility]. likely discharge in 2-3 days if patient improves psychiatrically.
[2023-02-16] MEDS: LITHIUM CARBONATE ER 450 MG TABLET.ER PO SCH (21:45)
[2023-02-16] MEDS: QUEtiapine 100 MG TAB PO SCH (21:45)
[2023-02-16] MEDS: RIVAROXABAN 20 MG TAB PO SCH (21:45)
[2023-02-16] MEDS: FAMOTIDINE 20 MG TAB PO SCH (21:46)
[2023-02-16] MEDS: haloperidoL 5 MG TAB PO PRN (23:36)
[2023-02-17] MEDS: LEVOTHYROXINE 75 MCG TAB PO SCH (06:27)
[2023-02-17] MEDS: FENOFIBRATE 160 MG TAB PO SCH (09:41)
[2023-02-17] MEDS: VENLAFAXINE HCL ER 37.5 MG CAP PO SCH (09:41)
[2023-02-17] MEDS: TAMSULOSIN 0.4 MG CAP.ER.24H PO SCH (09:41)
[2023-02-17] MEDS: buPROPion XL 150 MG TAB.ER.24H PO SCH (09:41)
[2023-02-17] MEDS: ATORVASTATIN 40 MG TAB PO SCH (09:41)
--- NOTE | 2023-02-17 11:54 | P.PN ---
Progress Note - Text Progress Note Date: 02/17/23 Interval history: Patient was seen today laying in bed and was agreeable speech instructor in the of [employer]. Patient appears to have mild improvement in his appearance today, he continues to perseverate on his negative feelings about his situation. He was somewhat vague and superficial about his mood and also anxiety today. Continues to endorse some depression. He states that medications have been helping a bit for his anxiety. Claims that he was having some suicidal thoughts last night and that this morning however has no intent or plan. He was not tearful today. He continues to go. He has attended an avoidant about speaking about discharge planning. He claims that he was able to sleep fairly fairly at nighttime. He claims that his appetite is improving mildly. Denies any homicidal ideations. Denies any auditory or visual hallucinations. He has been taking the medications not reporting any side effects. Mental status exam: General Appearance: Patient appears to be disheveled in appearance, longer hair, wearing glasses, stated age is alert, directable, and attempts to cooperate. Patient appears to have improving hygiene and grooming. Poor eye contact. Behavior: Patient is seated without any agitated behavior. Constricted Speech: Patient's speech is fluent and nonpressured. Monotone, mildly improving Mood/Affect: Patient reports their mood is depressed improving mildly, affect is congruent and constricted. Suicidality/Homicidality: Patient denies having any homicidal ideation intent or plan. Admits to suicidal thoughts, no intent or plan. Perceptions: Patient denies any visual hallucinations and denies any auditory hallucinations Though content/process: There is no evidence of any delusional thought content and thought process is linear and goal-directed. [place]. Memory and concentration: AOX3, grossly intact for the purposes of this session Judgment and insight: Chronically poor, improving mildly IMPRESSIONS: Major depressive disorder, recurrent, severe without psychotic features Social anxiety disorder Cannabis use disorder legal problems PLAN: -Patient is admitted under voluntary status to MHU for stabilization of psychiatric symptoms and safety. Patient has signed adult voluntary form and medication consent and is placed in patient's chart. -Medications : continue Effexor xr 37.5 mg for mood/anxiety. will continue wellbutrin xl 300 mg for depression. continue seroquel 100 mg qhs for insomnia/mood stabilization. lithobid 450 mg bid for mood adjunct/suicidal thoughts -Ativan and Haldol PRN for agitation/aggression -NRT - not needed as patient does not smoke -SW on board for discharge planning. Encourage patient to participate in groups to work on coping skills. patients has a PPO against him and he is not allowed to contact him. patient is not allowed to go back home and currently looking detention referral, likely [facility]. likely discharge in 1-2 days if patient improves psychiatrically.
[2023-02-17] MEDS: LITHIUM CARBONATE ER 450 MG TABLET.ER PO SCH (21:40)
[2023-02-17] MEDS: QUEtiapine 100 MG TAB PO SCH (21:40)
[2023-02-17] MEDS: FAMOTIDINE 20 MG TAB PO SCH (21:40)
[2023-02-17] MEDS: RIVAROXABAN 20 MG TAB PO SCH (21:40)
[2023-02-18] MEDS: LORazepam 1 MG TAB PO PRN (00:30)
[2023-02-18] MEDS: haloperidoL 5 MG TAB PO PRN (00:30)
[2023-02-18] MEDS: buPROPion XL 300 MG TAB.ER.24H PO SCH (09:30)
[2023-02-18] MEDS: VENLAFAXINE HCL ER 37.5 MG CAP PO SCH (09:30)
[2023-02-18] MEDS: ATORVASTATIN 40 MG TAB PO SCH (09:30)
[2023-02-18] MEDS: FENOFIBRATE 160 MG TAB PO SCH (09:30)
[2023-02-18] MEDS: LEVOTHYROXINE 75 MCG TAB PO SCH (09:30)
[2023-02-18] MEDS: TAMSULOSIN 0.4 MG CAP.ER.24H PO SCH (09:30)
[2023-02-18] MEDS ORDERED: VENLAFAXINE HCL ER 37.5 MG CAP PO STA (11:10)
--- NOTE | 2023-02-18 11:10 | P.PN ---
Progress Note - Text Progress Note Date: 02/18/23 Interval history: Patient was seen today for psychiatric follow up. he was seen laying in bed and was agreeable speech and language specialist in the office. Patient states that he spoke with his last night and states that she wants a divorce now. he claims that he was feeling upset and depressed. claims that his anxiety is still elevated. claims that his sleep was fair last night but states that it was difficult initiating it also states that he had vivid dreams. Claims that he was having some suicidal thoughts last night and that this morning however has no intent or plan. He was not tearful today. He claims that he went to three groups yesterday and none today. He claims that his appetite is improving mildly. Denies any homicidal ideations. Denies any auditory or visual hallucinations. He has been taking the medications not reporting any side effects. Mental status exam: General Appearance: Patient appears to be mildly disheveled in appearance, longer hair, wearing glasses, stated age is alert, directable, and attempts to cooperate. Patient appears to have improving hygiene and grooming. Poor eye contact. Behavior: Patient is seated without any agitated behavior. Constricted Speech: Patient's speech is fluent and nonpressured. Monotone, mildly improving Mood/Affect: Patient reports their mood is depressed and anxious, affect is congruent and constricted. Suicidality/Homicidality: Patient denies having any homicidal ideation intent or plan. Admits to suicidal thoughts, no intent or plan. Perceptions: Patient denies any visual hallucinations and denies any auditory hallucinations Though content/process: There is no evidence of any delusional thought content and thought process is linear and goal-directed. [place]. focused on his stressors about his and divorce. Memory and concentration: AOX3, grossly intact for the purposes of this session Judgment and insight: Chronically poor, improving mildly IMPRESSIONS: Major depressive disorder, recurrent, severe without psychotic features Social anxiety disorder Cannabis use disorder legal problems PLAN: -Patient is admitted under voluntary status to MHU for stabilization of psychiatric symptoms and safety. Patient has signed adult voluntary form and medication consent and is placed in patient's chart. -Medications : increase Effexor xr 75 mg for mood/anxiety, will continue wellbutrin xl 300 mg for depression. increase seroquel 150 mg qhs for insomnia/mood stabilization. lithobid 450 mg bid for mood adjunct/suicidal thoughts. check lihtium level tonight. -Ativan and Haldol PRN for agitation/aggression -NRT - not needed as patient does not smoke -SW on board for discharge planning. Encourage patient to participate in groups to work on coping skills. patients has a PPO against him and he is not allowed to contact him. patient is not allowed to go back home and currently looking nursing home referral, likely [facility]. likely discharge thursday if patient improves psychiatrically.
[2023-02-18] MEDS ORDERED: QUEtiapine 50 MG TAB PO SCH (21:00)
[2023-02-18] MEDS: FAMOTIDINE 20 MG TAB PO SCH (21:46)
[2023-02-18] MEDS: LITHIUM CARBONATE ER 450 MG TABLET.ER PO SCH (21:46)
[2023-02-18] MEDS: RIVAROXABAN 20 MG TAB PO SCH (21:47)
[2023-02-19] MEDS: LORazepam 1 MG TAB PO PRN (02:42)
[2023-02-19] MEDS: haloperidoL 5 MG TAB PO PRN (02:42)
[2023-02-19] MEDS: LEVOTHYROXINE 75 MCG TAB PO SCH (06:29)
[2023-02-19] MEDS: VENLAFAXINE HCL ER 75 MG CAP PO SCH (09:22)
[2023-02-19] MEDS: ATORVASTATIN 40 MG TAB PO SCH (09:22)
[2023-02-19] MEDS: TAMSULOSIN 0.4 MG CAP.ER.24H PO SCH (09:22)
[2023-02-19] MEDS: FENOFIBRATE 160 MG TAB PO SCH (09:22)
[2023-02-19] MEDS: buPROPion XL 300 MG TAB.ER.24H PO SCH (09:22)
--- NOTE | 2023-02-19 13:07 | P.PN ---
Progress Note - Text Progress Note Date: 02/19/23 Interval history: Patient was seen today for psychiatric follow up and he was laying in his bed today sleeping. Patient continues to have a constricted affect and states that he did not sleep well last night. He required Haldol and Ativan last night due to "the same problem" and states that he has been having sleep difficulties. Patient continues to have the sleeping during the day and awake more at nighttime. He was requesting have his medications increased. He continues to be fairly constricted in his affect and speaking negatively about his situation and his divorce. Laundry Route Driver attempted to engage with him more about the different options that he has and also housing including a group home referral and getting a ride there which patient seemed to be indifferent about. He claims that he did attempt to speak with his biological plant operator yesterday over the phone. he claims that he was feeling upset and depressed. claims that his anxiety is still elevated. Claims that he was having some suicidal thoughts last night and this morning however has no intent or plan. He was not tearful today. He claims that his appetite is improving mildly. Denies any homicidal ideations. Denies any auditory or visual hallucinations. He has been taking the medications not reporting any side effects. Mental status exam: General Appearance: Patient appears to be mildly disheveled in appearance, longer hair, wearing glasses, stated age is alert, directable, and attempts to cooperate. Patient appears to have improving hygiene and grooming. Improving eye contact. Behavior: Patient is seated without any agitated behavior. Constricted Speech: Patient's speech is fluent and nonpressured. Monotone, mildly improving Mood/Affect: Patient reports their mood is depressed and anxious, affect is congruent and constricted. Suicidality/Homicidality: Patient denies having any homicidal ideation intent or plan. Admits to suicidal thoughts, no intent or plan. Perceptions: Patient denies any visual hallucinations and denies any auditory hallucinations Though content/process: There is no evidence of any delusional thought content and thought process is linear and goal-directed. [place]. focused on his stressors about his and divorce. [place] Memory and concentration: AOX3, grossly intact for the purposes of this session Judgment and insight: Chronically poor, improving mildly IMPRESSIONS: Major depressive disorder, recurrent, severe without psychotic features Social anxiety disorder Cannabis use disorder legal problems PLAN: -Patient is admitted under voluntary status to MHU for stabilization of psychiatric symptoms and safety. Patient has signed adult voluntary form and medication consent and is placed in patient's chart. -Medications : continue Effexor xr 75 mg for mood/anxiety, increase wellbutrin xl 450 mg for depression. increase seroquel 200 mg qhs for insomnia/mood stabilization. lithobid 450 mg bid for mood adjunct/suicidal thoughts. check lihtium level tonight. -Ativan and Haldol PRN for agitation/aggression -NRT - not needed as patient does not smoke -SW on board for discharge planning. Encourage patient to participate in groups to work on coping skills. patients has a PPO against him and he is not allowed to contact him. patient is not allowed to go back home and currently looking group home referral, likely [facility]. likely discharge tomorrow if patient improves psychiatrically, he will need a ride down to the group home. SW also exploring to see if the PPO against him is still active and also about arranging him a ride/transportation to court.
[2023-02-19] MEDS: QUEtiapine 200 MG TAB PO SCH (23:00)
[2023-02-19] MEDS: FAMOTIDINE 20 MG TAB PO SCH (23:00)
[2023-02-19] MEDS: LITHIUM CARBONATE ER 450 MG TABLET.ER PO SCH (23:00)
[2023-02-19] MEDS: RIVAROXABAN 20 MG TAB PO SCH (23:01)
[2023-02-20] MEDS: LEVOTHYROXINE 75 MCG TAB PO SCH (06:46)
[2023-02-20] MEDS: TAMSULOSIN 0.4 MG CAP.ER.24H PO SCH (08:13)
[2023-02-20] MEDS: FENOFIBRATE 160 MG TAB PO SCH (08:13)
[2023-02-20] MEDS: VENLAFAXINE HCL ER 75 MG CAP PO SCH (08:13)
[2023-02-20] MEDS: ATORVASTATIN 40 MG TAB PO SCH (08:13)
[2023-02-20] MEDS: buPROPion XL 150 MG TAB.ER.24H PO SCH (08:13)
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
[2023-02-20] MEDS: LITHIUM CARBONATE ER 450 MG TABLET.ER PO SCH (20:37)
[2023-02-20] MEDS: QUEtiapine 200 MG TAB PO SCH (20:37)
[2023-02-20] MEDS: RIVAROXABAN 20 MG TAB PO SCH (20:37)
[2023-02-20] MEDS: FAMOTIDINE 20 MG TAB PO SCH (20:37)
[2023-02-21] MEDS: LORazepam 1 MG TAB PO PRN (02:57)
[2023-02-21] MEDS: LEVOTHYROXINE 75 MCG TAB PO SCH (07:01)
[2023-02-21] MEDS: VENLAFAXINE HCL ER 75 MG CAP PO SCH (09:42)
[2023-02-21] MEDS: FENOFIBRATE 160 MG TAB PO SCH (09:42)
[2023-02-21] MEDS: TAMSULOSIN 0.4 MG CAP.ER.24H PO SCH (09:42)
[2023-02-21] MEDS: buPROPion XL 150 MG TAB.ER.24H PO SCH (09:43)
[2023-02-21] MEDS: ATORVASTATIN 40 MG TAB PO SCH (09:43)
[2023-02-21] MEDS: FAMOTIDINE 20 MG TAB PO SCH (21:13)
[2023-02-21] MEDS: RIVAROXABAN 20 MG TAB PO SCH (21:13)
[2023-02-21] MEDS: QUEtiapine 200 MG TAB PO SCH (21:13)
[2023-02-21] MEDS: LITHIUM CARBONATE ER 450 MG TABLET.ER PO SCH (21:13)
--- NOTE | 2023-02-21 21:36 | XR ---
EXAMINATION TYPE: XR chest 2V DATE OF EXAM: 02/21/2023 9:30 PM COMPARISON: None TECHNIQUE: XR chest 2V . CLINICAL INDICATION:Male, 52 years old with history of "It hurts when I breath in", back lower right lung; FINDINGS: Lungs/Pleura: There is no evidence of pleural effusion, focal consolidation, or pneumothorax. Pulmonary vascularity: Unremarkable. Heart/mediastinum: Cardiomediastinal silhouette is unremarkable. Musculoskeletal: No acute osseous pathology. IMPRESSION: No acute cardiopulmonary disease/process.
[2023-02-22 03:51] VITALS: RESP 17
[2023-02-22] MEDS: LEVOTHYROXINE 75 MCG TAB PO SCH (06:38)
[2023-02-22] MEDS: buPROPion XL 150 MG TAB.ER.24H PO SCH (08:46)
[2023-02-22] MEDS: TAMSULOSIN 0.4 MG CAP.ER.24H PO SCH (08:47)
[2023-02-22] MEDS: ATORVASTATIN 40 MG TAB PO SCH (08:47)
[2023-02-22] MEDS: VENLAFAXINE HCL ER 75 MG CAP PO SCH (08:47)
[2023-02-22] MEDS: FENOFIBRATE 160 MG TAB PO SCH (08:47)
--- NOTE | 2023-02-22 16:38 | P.PN ---
Progress Note - Text Progress Note Date: 02/21/23 Interval history: Patient was seen socializing with [place] the [facility] and was directable and agreeable to speak with sports writer. He reports his mood is "so-so", affect is stable. At this time patient denies any suicidal or homicidal ideation, intent or plan. He does not appear to be responding to internal stimuli, but reports he hears his 's voices saying negative things to him such as "loser, pathetic", reports she used to call him these names. Patient denies any side effects from the medications and has been compliant with meds. He complains of chest pain on inhalation, points to his back over the lower right lung. No shortness of breath. Mental status exam: General Appearance: Patient appears to be stated age, marginal hygiene and grooming. Behavior: No agitated behavior. Patient is calm and directable. Speech: Patient's speech is fluent and non-pressured. Mood/Affect: Mood is "So-so", affect is congruent and constricted. Suicidality/Homicidality: Patient denies having any suicidal or homicidal ideation intent or plan. Perceptions: Patient denies any auditory or visual hallucinations. Though content/process: There is no evidence of any delusional thought content and thought process is linear and goal-directed. Reports hearing his 's voice call him names. Memory and concentration: AOX3, grossly intact for the purposes of this session Judgment and insight: improving mildly Assessment/Plan: Continue with current diagnosis. Patient continues to meet criteria for inpatient psychiatric admission for symptom stabilization and safety. Patient will be maintained on current psychotropic medication regimen. CXR routine ordered. Monitor for medication compliance and for any psychotropic medication side effects. Will continue to monitor ongoing response to treatment. Encouraged participation in milieu.
--- NOTE | 2023-02-22 16:42 | P.PN ---
Progress Note - Text Progress Note Date: 02/22/23 Interval history: [facility] and was directable and agreeable to speak with conventional underwriter. He reports fair mood, affect is stable. He denies problems with sleep or appetite. At this time patient denies any suicidal or homicidal ideation, intent or plan. He does not appear to be responding to internal stimuli, but reports he hears his 's voice calling him names. Patient denies any side effects from the medications and has been compliant with meds. He reports his chest discomfort has improved today, and he denies any complaints. Reviewed CXR results are negative and he expresses understanding. He denies any other concerns at this time. Mental status exam: General Appearance: Patient appears to be stated age, marginal hygiene and grooming. Behavior: No agitated behavior. Patient is calm and directable. Speech: Patient's speech is fluent and non-pressured. Mood/Affect: Mood is improving mildly, affect is congruent and constricted. Suicidality/Homicidality: Patient denies having any suicidal or homicidal gela ation intent or plan. Perceptions: Patient denies any auditory or visual hallucinations. Though content/process: There is no evidence of any delusional thought content and thought process is linear and goal-directed. Reports hearing his 's voice call him names. Memory and concentration: AOX3, grossly intact for the purposes of this session Judgment and insight: improving mildly Assessment/Plan: Continue with current diagnosis. Patient continues to meet criteria for inpatient psychiatric admission for symptom stabilization and safety. Patient will be maintained on current psychotropic medication regimen. CXR routine - negative for cardiopulmonary process. Monitor for medication compliance and for any psychotropic medication side effects. Will continue to monitor ongoing response to treatment. Encouraged participation in milieu.
[2023-02-22] MEDS: RIVAROXABAN 20 MG TAB PO SCH (20:50)
[2023-02-22] MEDS: LITHIUM CARBONATE ER 450 MG TABLET.ER PO SCH (20:50)
[2023-02-22] MEDS: FAMOTIDINE 20 MG TAB PO SCH (20:51)
[2023-02-22] MEDS: QUEtiapine 200 MG TAB PO SCH (20:51)
[2023-02-23] MEDS: LORazepam 1 MG TAB PO PRN (03:27)
[2023-02-23] MEDS: LEVOTHYROXINE 75 MCG TAB PO SCH (06:35)
[2023-02-23] MEDS: FENOFIBRATE 160 MG TAB PO SCH (08:36)
[2023-02-23] MEDS: buPROPion XL 150 MG TAB.ER.24H PO SCH (08:36)
[2023-02-23] MEDS: ATORVASTATIN 40 MG TAB PO SCH (08:36)
[2023-02-23] MEDS: VENLAFAXINE HCL ER 75 MG CAP PO SCH (08:36)
[2023-02-23] MEDS: TAMSULOSIN 0.4 MG CAP.ER.24H PO SCH (08:36)
--- NOTE | 2023-02-23 13:19 | P.PN ---
Progress Note - Text Progress Note Date: 02/23/23 Interval history: Patient was seen today for psychiatric follow up and he was laying in his bed today sleeping. Patient was awoken briefly by fiction writer and he wanted to speak in his room today. He was fairly constricted and concrete today. He denies any changes in his mood and anxiety and states that "they're fine I guess". He continues to state that he is hearing his 's voice talking negatively to him mainly at nighttime. States that he slept better last night. Denies any other complaints over the weekend. He continues to have fairly limited insight and judgment. He is denying any current suicidal or homicidal ideations intent or plan. He was not tearful today. He had bad eye contact. He claims that his appetite is improving mildly. Denies any homicidal ideations. Denies any auditory or visual hallucinations. He has been taking the medications not reporting any side effects. Mental status exam: General Appearance: Patient appears to be mildly disheveled in appearance, longer hair, wearing glasses, stated age is alert, directable, and attempts to cooperate. Patient appears to have improving hygiene and grooming. Improving eye contact. Behavior: Patient is laying in bed without any agitated behavior. Constricted Speech: Patient's speech is fluent and nonpressured. Monotone, mildly improving Mood/Affect: Patient reports their mood is "about the same", affect is congruent and constricted, improving mildly Suicidality/Homicidality: Patient denies having any homicidal ideation intent or plan. Admits to suicidal thoughts, no intent or plan. Perceptions: Patient denies any visual hallucinations and denies any auditory hallucinations Though content/process: There is no evidence of any delusional thought content and thought process is linear and goal-directed. [place]. focused on his stressors Memory and concentration: AOX3, grossly intact for the purposes of this session Judgment and insight: Chronically poor, improving mildly IMPRESSIONS: Major depressive disorder, recurrent, severe without psychotic features Social anxiety disorder Cannabis use disorder legal problems PLAN: -Patient is admitted under voluntary status to [facility] for stabilization of psychiatric symptoms and safety. Patient has signed adult voluntary form and medication consent and is placed in patient's chart. -Medications : continue Effexor xr 75 mg for mood/anxiety, wellbutrin xl 450 mg for depression. seroquel 200 mg qhs for insomnia/mood stabilization. lithobid 450 mg bid for mood adjunct/suicidal thoughts. -lithium level on 02/20 - 0.5 -Ativan and Haldol PRN for agitation/aggression -NRT - not needed as patient does not smoke -SW on board for discharge planning. Encourage patient to participate in groups to work on coping skills. patients has a PPO against him and he is not allowed to contact him. patient is not allowed to go back home and currently looking [facility] referral, [facility]. likely discharge tomorrow if patient improves psychiatrically, he will need a ride down to the [facility].
[2023-02-23] MEDS: LITHIUM CARBONATE ER 450 MG TABLET.ER PO SCH (23:29)
[2023-02-23] MEDS: QUEtiapine 200 MG TAB PO SCH (23:29)
[2023-02-23] MEDS: RIVAROXABAN 20 MG TAB PO SCH (23:29)
[2023-02-23] MEDS: FAMOTIDINE 20 MG TAB PO SCH (23:29)
[2023-02-24] MEDS: LORazepam 1 MG TAB PO PRN (02:49)
[2023-02-24 02:53] VITALS: BP 112/71; PULSE 120; TEMP 98
[2023-02-24] MEDS: LEVOTHYROXINE 75 MCG TAB PO SCH (06:31)
[2023-02-24] MEDS: TAMSULOSIN 0.4 MG CAP.ER.24H PO SCH (08:32)
[2023-02-24] MEDS: ATORVASTATIN 40 MG TAB PO SCH (08:33)
[2023-02-24] MEDS: VENLAFAXINE HCL ER 75 MG CAP PO SCH (08:33)
[2023-02-24] MEDS: FENOFIBRATE 160 MG TAB PO SCH (08:33)
[2023-02-24] MEDS: buPROPion XL 150 MG TAB.ER.24H PO SCH (08:33)
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
[2023-02-25] MEDS ORDERED: buPROPion XL 300 MG TAB.ER.24H PO SCH (09:00)
== END 2023-02-24 15:25 | disposition home or self-care (01) | DRG 885 ==
LOC: EC 15:13 → 3MHU 20:58
PROVIDERS: ADMIT Psychiatry & Neurology Psychiatry; ATTEND Psychiatry & Neurology Psychiatry
DX: F33.2 Major depressive disorder, recurrent severe without psychotic features (principal); R45.851 Suicidal ideations; F34.1 Dysthymic disorder; F40.10 Social phobia, unspecified; F42.9 Obsessive-compulsive disorder, unspecified; G47.00 Insomnia, unspecified; K59.00 Constipation, unspecified; N18.30 Chronic kidney disease, stage 3 unspecified; I12.9 Hypertensive chronic kidney disease with stage 1 through stage 4 chronic kidney disease, or unspecified chronic kidney disease; F12.10 Cannabis abuse, uncomplicated; E03.9 Hypothyroidism, unspecified; R63.0 Anorexia; K21.9 Gastro-esophageal reflux disease without esophagitis; Z81.8 Family history of other mental and behavioral disorders; N20.0 Calculus of kidney; Z86.711 Personal history of pulmonary embolism; Z86.718 Personal history of other venous thrombosis and embolism; Z65.3 Problems related to other legal circumstances; Z63.9 Problem related to primary support group, unspecified; Z79.01 Long term (current) use of anticoagulants; Z79.890 Hormone replacement therapy; Z79.899 Other long term (current) drug therapy; Z87.442 Personal history of urinary calculi; Z20.822 Contact with and (suspected) exposure to COVID-19
CPT/HCPCS: 71046; 80053; 80178; 80306; 82075; 83036; 84443; 85025; 87635